=== PATIENT | male | born 1940 | race Caucasian/White ===

== ENCOUNTER 2017-12-16 16:15 | Outpatient (RCR) | payer MEDICARE, OTHER, SELFPAY ==
[2017-11-19 16:56] VITALS: BMI 27.8
[2017-12-08 12:24] LABS: Anion Gap 10 (5-15); BUN 26 mg/dL (7-18); Calcium,Total 8.1 mg/dL (8.5-10.1); Chloride 106 mmol/L (98-107); Creatinine, Serum 0.79 mg/dL (0.70-1.30); EST Glomerular Filtration Rate 101 mL/min (>60); Est Glom Filt Rate - Afr Amer 123 mL/min (>60); Glucose 77 mg/dL (70-110); Magnesium 1.6 mg/dL (1.6-2.6); Potassium 3.8 mmol/L (3.5-5.1); Sodium Level 142 mmol/L (136-145)
[2017-12-08 12:43] LABS: Hematocrit 35.7 % (40-54); Hemoglobin 11.7 g/dl (13.0-16.5); Mean Corp Hgb Conc 32.8 g/gl (32-36); Mean Corpuscular Hgb 27.9 pg (27.0-32.0); Mean Platelet Vol. 11.6 fl (6.2-12.0); Platelet Count 129 K/mm3 (150-450); RBC Distribution Width CV 14.5 % (11.6-14.6); RBC Distribution Width SD 43.7 fl (35.1-43.9); White Blood Count 12.6 K/mm3 (4.4-11.0)
[2017-12-08 13:08] LABS: Differential Indicated SCAN CRITERIA MET; POSITIVE COUNT YES; POSITIVE DIFFERENTIAL YES; POSITIVE MORPHOLOGY YES
[2017-12-08 14:59] LABS: Lymphocyte 1 % (19-41); Monocyte 2 % (0-10); Neutrophil-Band 2 % (0-5); Neutrophil-Segmented 95 % (47-70); Total Cells Counted 100 (MANUAL DIFF)
[2017-12-08 15:00] LABS: Burr Cells 1+; Platelet Estimate SLT DEC (ADEQ); Red Cell Morphology N CHROM NORMAL (NORM C&C)
[2017-12-08 15:02] LABS: Scan Smear per Review Criteria MANUAL DIFF
[2017-12-09 03:34] LABS: Absolute Neutrophil Count 12.2 X10^3/uL (2.0-7.7); Neutrophil # 12.24 X10^3/uL (2.7-7.7)
[2017-12-09 03:35] LABS: Absolute Lymphocyte Count 0.13 X10^3/ul (0.83-4.51); Lymphocyte # 0.13 X10^3/ul (4.0)
[2017-12-09 13:04] LABS: Pathologist Review Reviewed
[2017-12-15 14:46] LABS: Absolute Lymphocyte Count 0.73 X10^3/ul (0.83-4.51); Absolute Neutrophil Count 12.2 X10^3/uL (2.0-7.7); Basophil# 0.04 X10^3/uL; Basophil% 0.3 % (0-1); Differential Indicated SCAN CRITERIA MET; Eosinophil# 0.01 X10^3/uL; Eosinophils% 0.1 % (0-5); Hematocrit 31.9 % (40-54); Hemoglobin 10.4 g/dl (13.0-16.5); Lymphocyte # 0.73 X10^3/ul (4.0); Lymphocyte % 5.2 % (19-41); Mean Corp Hgb Conc 32.6 g/gl (32-36); Mean Corpuscular Hgb 27.4 pg (27.0-32.0); Mean Corpuscular Volume 83.9 fL (80-94); Mean Platelet Vol. 10.7 fl (6.2-12.0); Monocyte# 0.81 X10^3/uL; Monocyte% 5.7 % (0-10); Neutrophil # 12.24 X10^3/uL (2.7-7.7); Neutrophil % 86.5 % (47-70); POSITIVE COUNT YES; POSITIVE DIFFERENTIAL NO; POSITIVE MORPHOLOGY YES; Platelet Count 161 K/mm3 (150-450); RBC Distribution Width SD 45.7 fl (35.1-43.9); White Blood Count 14.1 K/mm3 (4.4-11.0)
[2017-12-15 14:47] LABS: Anion Gap 7 (5-15); BUN 14 mg/dL (7-18); BUN/Creat Ratio 16.4 RATIO (10-20); Calcium,Total 7.4 mg/dL (8.5-10.1); Chloride 107 mmol/L (98-107); Creatinine, Serum 0.86 mg/dL (0.70-1.30); EST Glomerular Filtration Rate 92 mL/min (>60); Est Glom Filt Rate - Afr Amer 112 mL/min (>60); Glucose 145 mg/dL (70-110); Magnesium 1.1 mg/dL (1.6-2.6); Potassium 2.7 mmol/L (3.5-5.1); Sodium Level 140 mmol/L (136-145)
[2017-12-16 16:43] LABS: Pathologist Review Reviewed
[2017-12-16 17:25] LABS: Anion Gap 8 (5-15); BUN 15 mg/dL (7-18); BUN/Creat Ratio 19.9 RATIO (10-20); Calcium,Total 7.6 mg/dL (8.5-10.1); Chloride 110 mmol/L (98-107); Creatinine, Serum 0.75 mg/dL (0.70-1.30); EST Glomerular Filtration Rate 107 mL/min (>60); Est Glom Filt Rate - Afr Amer 130 mL/min (>60); Glucose 101 mg/dL (70-110); Magnesium 1.3 mg/dL (1.6-2.6); Potassium 3.2 mmol/L (3.5-5.1); Sodium Level 143 mmol/L (136-145)
== END 2017-12-17 23:59 ==
LOC: HHLAB 16:15
PROVIDERS: Visit Provider Internal Medicine Hematology
DX: C83.59 Lymphoblastic (diffuse) lymphoma, extranodal and solid organ sites (principal); I25.10 Atherosclerotic heart disease of native coronary artery without angina pectoris
CPT/HCPCS: 80048; 83735; 85025

== ENCOUNTER 2017-12-27 09:54 | Emergency (ER) | payer MEDICARE, OTHER, SELFPAY ==
[2017-11-19 16:56] VITALS: BMI 27.8
[2017-12-27 10:02] VITALS: BP 103/65; PULSE 76; RESP 16; TEMP 36.4; O2SAT 99; BMI 21.5
== END 2017-12-27 10:23 | disposition home or self-care (01) ==
PROVIDERS: Emergency Provider Emergency Medicine; Family Provider Family Medicine; PCP Family Medicine
DX: C83.50 Lymphoblastic (diffuse) lymphoma, unspecified site (principal)
CPT/HCPCS: 96372; J2505

== ENCOUNTER 2017-12-29 16:08 | Outpatient (RCR) | payer MEDICARE, OTHER, SELFPAY ==
[2017-11-19 16:56] VITALS: BMI 27.8
[2017-12-05 10:09] VITALS: BP 112/69
[2017-12-22 18:45] LABS: Absolute Neutrophil Count 11.3 X10^3/uL (2.0-7.7); Basophil# 0.04 X10^3/uL; Basophil% 0.3 % (0-1); Eosinophil# 0.03 X10^3/uL; Eosinophils% 0.2 % (0-5); Hematocrit 31.9 % (40-54); Hemoglobin 10.2 g/dl (13.0-16.5); Lymphocyte % 7.3 % (19-41); Mean Corpuscular Hgb 27.6 pg (27.0-32.0); Mean Corpuscular Volume 86.4 fL (80-94); Mean Platelet Vol. 10.3 fl (6.2-12.0); Monocyte# 1.13 X10^3/uL; Monocyte% 8.3 % (0-10); Neutrophil # 11.27 X10^3/uL (2.7-7.7); Neutrophil % 82.8 % (47-70); POSITIVE COUNT NO; POSITIVE DIFFERENTIAL NO; POSITIVE MORPHOLOGY NO; Platelet Count 329 K/mm3 (150-450); RBC Distribution Width CV 16.6 % (11.6-14.6); RBC Distribution Width SD 48.7 fl (35.1-43.9); Red Blood Count 3.69 M/mm3 (4.6-6.2); White Blood Count 13.6 K/mm3 (4.4-11.0)
[2017-12-22 19:00] LABS: Anion Gap 7 (5-15); BUN 10 mg/dL (7-18); BUN/Creat Ratio 19.5 RATIO (10-20); Calcium,Total 7.8 mg/dL (8.5-10.1); Chloride 105 mmol/L (98-107); Creatinine, Serum 0.51 mg/dL (0.70-1.30); EST Glomerular Filtration Rate 166 mL/min (>60); Est Glom Filt Rate - Afr Amer 201 mL/min (>60); Glucose 71 mg/dL (74-106); Magnesium 1.6 mg/dL (1.6-2.6); Potassium 3.7 mmol/L (3.5-5.1); Sodium Level 141 mmol/L (136-145)
[2017-12-29 16:50] LABS: Hematocrit 28.1 % (40-54); Hemoglobin 9.2 g/dl (13.0-16.5); Mean Corp Hgb Conc 32.7 g/gl (32-36); Mean Corpuscular Hgb 28.2 pg (27.0-32.0); Mean Corpuscular Volume 86.2 fL (80-94); Mean Platelet Vol. 10.7 fl (6.2-12.0); Platelet Count 212 K/mm3 (150-450); RBC Distribution Width CV 17.9 % (11.6-14.6); RBC Distribution Width SD 52.9 fl (35.1-43.9); Red Blood Count 3.26 M/mm3 (4.6-6.2)
[2017-12-29 17:02] LABS: Anion Gap 9 (5-15); BUN 22 mg/dL (7-18); BUN/Creat Ratio 42.4 RATIO (10-20); Calcium,Total 8.2 mg/dL (8.5-10.1); Chloride 109 mmol/L (98-107); Creatinine, Serum 0.52 mg/dL (0.70-1.30); EST Glomerular Filtration Rate 164 mL/min (>60); Est Glom Filt Rate - Afr Amer 199 mL/min (>60); Glucose 100 mg/dL (74-106); Magnesium 1.8 mg/dL (1.6-2.6); Potassium 4.1 mmol/L (3.5-5.1); Sodium Level 143 mmol/L (136-145)
[2017-12-29 17:41] LABS: Differential Indicated MANUAL DIFF; POSITIVE COUNT YES; POSITIVE DIFFERENTIAL YES; POSITIVE MORPHOLOGY YES
[2017-12-29 21:51] LABS: Absolute Lymphocyte Count 0.53 X10^3/ul (0.83-4.51); Neutrophil-Band 1 % (0-5); Neutrophil-Segmented 97 % (47-70)
[2017-12-29 21:52] LABS: Lymphocyte 1 % (19-41); Monocyte 1 % (0-10)
[2017-12-29 21:53] LABS: Anisocytosis RARE; Platelet Estimate ADEQUATE (ADEQ)
[2017-12-29 21:58] LABS: Total Cells Counted 100 (MANUAL DIFF)
[2017-12-30 15:52] LABS: Pathologist Review Reviewed
[2017-12-31 15:15] LABS: Differential Comment SEE COMMENTS
== END 2018-01-06 23:59 ==
LOC: HHLAB 16:08
PROVIDERS: Family Provider Family Medicine; PCP Family Medicine; Visit Provider Internal Medicine Hematology
DX: C83.59 Lymphoblastic (diffuse) lymphoma, extranodal and solid organ sites (principal); I25.10 Atherosclerotic heart disease of native coronary artery without angina pectoris
CPT/HCPCS: 80048; 83735; 85025

== ENCOUNTER → 2018-01-05 16:46 | Outpatient (CLI) | payer MEDICARE, OTHER, SELFPAY ==
[2017-11-19 16:56] VITALS: BMI 27.8
[2018-01-05 17:37] LABS: Hematocrit 33.1 % (40-54); Hemoglobin 10.7 g/dl (13.0-16.5); Mean Corp Hgb Conc 32.3 g/gl (32-36); Mean Corpuscular Hgb 27.4 pg (27.0-32.0); Mean Corpuscular Volume 84.7 fL (80-94); Mean Platelet Vol. 11.4 fl (6.2-12.0); Platelet Count 173 K/mm3 (150-450); RBC Distribution Width CV 19.5 % (11.6-14.6); RBC Distribution Width SD 56.5 fl (35.1-43.9); Red Blood Count 3.91 M/mm3 (4.6-6.2); White Blood Count 21.4 K/mm3 (4.4-11.0)
[2018-01-05 17:39] LABS: Differential Indicated MANUAL DIFF; POSITIVE COUNT NO; POSITIVE DIFFERENTIAL NO; POSITIVE MORPHOLOGY YES
[2018-01-05 17:56] LABS: Anion Gap 9 (5-15); BUN 19 mg/dL (7-18); BUN/Creat Ratio 26.2 RATIO (10-20); Calcium,Total 9.1 mg/dL (8.5-10.1); Chloride 98 mmol/L (98-107); Creatinine, Serum 0.73 mg/dL (0.70-1.30); EST Glomerular Filtration Rate 111 mL/min (>60); Est Glom Filt Rate - Afr Amer 135 mL/min (>60); Glucose 152 mg/dL (74-106); Magnesium 1.6 mg/dL (1.6-2.6); Potassium 3.5 mmol/L (3.5-5.1); Sodium Level 135 mmol/L (136-145)
[2018-01-05 18:35] LABS: Lymphocyte 1 % (19-41); Monocyte 6 % (0-10); Neutrophil-Band 38 % (0-5); Neutrophil-Segmented 55 % (47-70); Total Cells Counted 100 (MANUAL DIFF)
[2018-01-05 18:37] LABS: Absolute Lymphocyte Count 0.21 X10^3/ul (0.83-4.51); Absolute Neutrophil Count 19.9 X10^3/uL (2.0-7.7); Lymphocyte # 0.21 X10^3/ul (4.0)
[2018-01-05 18:43] LABS: Acanthocytes 2+; Anisocytosis 2+; Platelet Estimate ADEQUATE (ADEQ)
[2018-01-05 18:44] LABS: Crenated RBC 1+; Schistocytes RARE
[2018-01-06 14:44] LABS: Pathologist Review Reviewed
== END ==
PROVIDERS: Family Provider Family Medicine; PCP Family Medicine; Visit Provider Internal Medicine Hematology
DX: C83.50 Lymphoblastic (diffuse) lymphoma, unspecified site (principal)
CPT/HCPCS: 80048; 83735; 85025

== ENCOUNTER → 2018-01-06 10:26 | Outpatient (CLI) | payer MEDICARE, OTHER, SELFPAY ==
[2017-11-19 16:56] VITALS: BMI 27.8
--- NOTE | 2018-01-06 10:33 | RAD_ITS ---
STUDY: X-RAY CHEST REASON FOR EXAM: Male, 77 years old. History of pneumonia. TECHNIQUE: PA and lateral views of the chest. COMPARISON: Comparison is made with prior study dated October 28, 2017. FINDINGS: A right-sided PICC line catheter is seen with the tip in the proximal portion of the superior vena cava at the junction with the right atrium. There is evidence of a focal infiltration in the left lower lobe. Follow-up is recommended. There is blunting of the left costophrenic angle. Normal size heart. Normal mediastinum and benson. Normal visualized pulmonary arteries. There is atherosclerotic calcification of the aortic arch with tortuosity. There are diffuse degenerative changes of the visualized thoracic spine. Normal visualized ribs, clavicles, and shoulders. There is no demonstrated abnormality of the visualized soft tissue structures of the upper abdomen. RAD/Chest PA and Lateral IMPRESSION: Left lower lobe infiltrate. Follow-up is recommended. Blunting of the left costophrenic angle. Electronically Signed: Ronny Clark MD at 20:06 EST Tel [phone], Service support ,
== END ==
PROVIDERS: Family Provider Family Medicine; PCP Family Medicine; Visit Provider Family Medicine
DX: J15.9 Unspecified bacterial pneumonia (principal)
CPT/HCPCS: 71046

== ENCOUNTER 2018-01-06 16:21 | Emergency (ER) | payer MEDICARE, OTHER, SELFPAY ==
[2017-11-19 16:56] VITALS: BMI 27.8
[2018-01-06] VITALS (13 sets, daily range): BP systolic 61–100; BP diastolic 42–61; PULSE 114–190; RESP 12–48; TEMP 35.7–38.1; O2SAT 85–97; BMI 22.2
--- NOTE | 2018-01-06 16:48 | EKG12_ITS ---
Test Reason : REPEAT Blood Pressure : / mmHG Vent. Rate : 160 BPM Atrial Rate : 160 BPM P-R Int : 102 ms QRS Dur : 122 ms QT Int : 284 ms P-R-T Axes : 088 -45 057 degrees QTc Int : 463 ms Aflutter with 2:1 conduction Left axis deviation Right bundle branch block Septal infarct , age undetermined Abnormal ECG Confirmed by PERNELL FIELDS ([id number]), news editor KAYLA CLAYTON ([id number]) on 01/08/2018 2:53:17 PM Referred By: LUIS Confirmed By:PERNELL FIELDS
[2018-01-06] MEDS: 0.9% Normal Saline 1,000 ML IV.SOLN. 2000 ML IV (16:53)
--- NOTE | 2018-01-06 17:04 | RAD_ITS ---
XR Chest 1 View INDICATION: DYSPNEA/SOB AND COUGH. COMPARISON: Earlier the same day TECHNIQUE: Portable chest x-ray FINDINGS: Right-sided PICC line is seen in place, unchanged There is incomplete inspiration with accentuation of the cardiac size and central vascularity. There is stable hazy opacity at the left lung base. Some atelectatic changes are noted at the right lung base. RAD/Chest 1 View (Portable) IMPRESSION: Incomplete inspiration with bibasilar atelectasis. Hazy opacity at left lung base, cannot exclude developing pneumonic infiltrate. at 1743 Reported and signed by: Saira Treadwell MD Electronically Signed: Saira Treadwell MD at 16:42 EST Tel , Service support ,
[2018-01-06 17:05] LABS: Base Excess 0 mmol/L (-2 to +2); Bicarbonate 23.7 mmol/L (22-26); Blood Gas Specimen Type ART; EPAP 8; FI02 100; IPAP 16; PO2 83 mmHG (75-100); RR 12; SITE R Brachial; SO2 97 % (95-99); Time Given 1650; Total Carbon Dioxide 25 mmol/L; pCO2 31.1 mmHg (35-45); pH 7.49 (7.35-7.45)
--- NOTE | 2018-01-06 17:09 | EKG12_ITS ---
Test Reason : SOB Blood Pressure : / mmHG Vent. Rate : 129 BPM Atrial Rate : 129 BPM P-R Int : 192 ms QRS Dur : 126 ms QT Int : 334 ms P-R-T Axes : 057 -60 079 degrees QTc Int : 489 ms Sinus tachycardia with Premature supraventricular complexes Right bundle branch block Left anterior fascicular block Bifascicular block Abnormal ECG Confirmed by PERNELL FIELDS ([id number]), photo editor KAYLA CLAYTON ([id number]) on 01/08/2018 3:00:32 PM Referred By: LUIS Confirmed By:PERNELL FIELDS
--- NOTE | 2018-01-06 17:17 | EKG12_ITS ---
Test Reason : SVT REPEAT Blood Pressure : / mmHG Vent. Rate : 190 BPM Atrial Rate : 197 BPM P-R Int : 000 ms QRS Dur : 120 ms QT Int : 294 ms P-R-T Axes : 000 -67 019 degrees QTc Int : 522 ms Aflutter with 2:1 conduction Right bundle branch block Left anterior fascicular block Bifascicular block Anteroseptal infarct , age undetermined Abnormal ECG Confirmed by PERNELL FIELDS ([id number]), development editor KAYLA CLAYTON ([id number]) on 01/08/2018 2:53:55 PM Also confirmed by PERNELL FIELDS ([id number]), development editor KAYLA CLAYTON ([id number]) on 01/08/2018 3:00:52 PM Referred By: LUIS Confirmed By:PERNELL FIELDS
[2018-01-06 17:34] LABS: Bacteria 0 SEEN /hpf (None Seen); Mucous, Urine 0 SEEN /hpf (<or=2+)
[2018-01-06] MEDS: fentaNYL 100 MCG/2 ML Ampul 25 MCG IV ×2 (17:36→18:26)
[2018-01-06 17:43] LABS: Lactic Acid 9.2 mmol/L (0.4-2.0)
--- NOTE | 2018-01-06 17:49 | NURSING ---
HOSPICE FOR DR SMITH
[2018-01-06 17:50] LABS: Color, Urine Yellow (Yellow); Glucose, Dipstick Normal (Normal); Ketone-Dipstick 5 mg/dl (Negative); Leukocyte Esterase-Dipstick 25 /ul (Negative); Nitrite-Dipstick Negative (Negative); Occult Blood-Urine 10 /ul (Negative); Protein-Dipstick 100 mg/dl (Negative); Specific Gravity, Urine 1.025 (1.002-1.030); Urine Clarity Sl. Cloudy (Clear); Urine Urobilinogen 1 mg/dl (Normal)
[2018-01-06 18:03] LABS: ALB/GLOB Ratio 0.9 RATIO (0.9-2.4); AST(SGOT) 24 U/L (15-37); Alanine Aminotransfer ALT/SGPT 28 U/L (16-61); Albumin, Serum 3.3 g/dL (3.2-5.0); Alkaline Phosphatase 145 U/L (45-117); Anion Gap 19 (5-15); BUN 41 mg/dL (7-18); BUN/Creat Ratio 18.9 RATIO (10-20); Calcium,Total 9.2 mg/dL (8.5-10.1); Chloride 90 mmol/L (98-107); Creatinine, Serum 2.17 mg/dL (0.70-1.30); EST Glomerular Filtration Rate 32 mL/min (>60); Est Glom Filt Rate - Afr Amer 38 mL/min (>60); Estimated Creatinine Clearance 28.41 ml/min; Globulin 3.5 g/dL (2.2-4.2); Glucose 113 mg/dL (74-106); Potassium 3.5 mmol/L (3.5-5.1); Protein, Total 6.8 g/dL (6.4-8.2); Sodium Level 135 mmol/L (136-145)
[2018-01-06 18:16] LABS: Urine Bilirubin Dipstick 1 mg/dL (Negative)
[2018-01-06 18:23] LABS: Lymphocyte 1 % (19-41); Monocyte 3 % (0-10); Neutrophil-Band 11 % (0-5); Neutrophil-Segmented 85 % (47-70); Total Cells Counted 100 (MANUAL DIFF)
[2018-01-06] MEDS: Glycopyrrolate 0.2 MG/ML Vial 0.1 MG IV (18:25)
[2018-01-06] MEDS: Ondansetron 4 MG/2 ML Vial IM (18:25)
[2018-01-06 18:28] LABS: Hematocrit 36.1 % (40-54); Hemoglobin 11.9 g/dl (13.0-16.5); Mean Corpuscular Hgb 27.6 pg (27.0-32.0); Mean Corpuscular Volume 83.8 fL (80-94); Mean Platelet Vol. 11.6 fl (6.2-12.0); Platelet Count 218 K/mm3 (150-450); RBC Distribution Width CV 19.7 % (11.6-14.6); Red Blood Count 4.31 M/mm3 (4.6-6.2); White Blood Count 27.3 K/mm3 (4.4-11.0)
[2018-01-06 18:29] LABS: Amorphous Sediment 1+ URATE; Red Blood Cells-Urine 0-5 SEEN /hpf (0-5); Squamous Epithelial Cells - UA 0-5 SEEN /hpf (0-5); White Blood Cells 0-5 SEEN /hpf (0-5)
[2018-01-06 18:31] LABS: Differential Indicated MANUAL DIFF; POSITIVE COUNT NO; POSITIVE DIFFERENTIAL NO; POSITIVE MORPHOLOGY YES
[2018-01-06 18:32] LABS: Absolute Lymphocyte Count 0.27 X10^3/ul (0.83-4.51); Absolute Neutrophil Count 26.2 X10^3/uL (2.0-7.7)
[2018-01-06 18:33] LABS: Acanthocytes 2+; Crenated RBC 2+; Ovalocyte RARE; Platelet Morphology LARGE; Poikilocytosis 3+; Polychromasia RARE
[2018-01-06 18:36] LABS: Absolute Nucleated RBC Count 0.09 10^3/uL (0-5); NRBC Flagged by Analyzer 0.3 % (0-5)
--- NOTE | 2018-01-06 19:23 | ED.RN ---
THIS RN IN WITH PATIENT AND FAMILY AT APPROX 640. ASKED FAMILY WHAT THE THOUGHTS WERE ON HOSPICE CARE. FAMILY STATES THEY JUST DID NOT KNOW WHAT THE NEXT STEP WAS THEY TOLD THE HOSPICE WORKER THAT THEY DID WANT TO GO THE HOSPICE FACILITY. THIS RN TALKED TO CHARGE NURSE WHO STATES THE WORKER TOLD HIM THE FAMILY WAS NOT SURE IF HOSPICE WAS WHAT THEY WANTED. THIS RN TO DR DA SILVA WHO STATED FAMILY HAS WANTED HOSPICE FROM SHORTLY AFTER ARRIVAL. HOSPICE PAGED AGAIN
[2018-01-06] MEDS: LORazepam 2 MG/ML Syringe 1 MG IV (20:31)
--- NOTE | 2018-01-06 20:54 | ED.RN ---
MOIRA FROM HOSPICE CALLED AND REPORTED THAT AROUND [address] [facility] SHOULD HAVE THE BI-PAP DELIVERED TO HOSPICE FOR PT. AT THAT TIME HOSPICE WILL SEND TRANSPORT FOR PT PHOTOGRAPHER MODEL AT [facility].
[2018-01-06 21:10] LABS: Reflex Lactate? Y
--- NOTE | 2018-01-06 21:19 | ED.RN ---
ABSENCE OF VITAL SIGNS AT 2112. PT'S HEART RATE WAS PREVIOUSLY IN THE 150'S AND THEN DROPPED TO 60, THIS NURSE ENTERED PT'S ROOM AND PT'S STATED I THINK HE'S PASSED DR. SMITH WAS CALLED TO THE ROOM AND REPORTED PT AT 2112 TO THIS NURSE. PT WAS DNR AND TO BE TRANSPORTED TO HOSPICE.
--- NOTE | 2018-01-07 00:58 | ED.VISSUMM ---
- ER Visit Summary Date of Service: 01/07/18 Chief Complaint: Weakness and shortness of breath History of Present Illness: The patient is a 77 M presenting for evaluation secondary to weakness and shortness of breath. Patient has an underlying history of T-cell lymphoma and has been on chemo to rounds. Patient had been feeling ill over the course of the last week, cough and fever, but today became acutely worse. He is now in respiratory distress and presenting to the emergency department. Patient is a DNR Comfort Care arrest no intubation. Physical Examination: Cachectic male clearly in respiratory distress. Vital signs notable for hypotension 60/40, heart rate of 160, respirations 50, pulse ox of 80% on nasal cannula. Head normocephalic. Pale conjunctiva. Dry mucous membranes. Neck supple. Heart was irregular and tachycardic. Lung sounds very wet showing evidence of rales and rhonchi with respiratory distress. Abdomen was distended but nontender. Extremities were nontender. Skin was pale. Patient was alert and oriented, and exhibited no lateralizing neurological deficits. Test Results: EKG shows A. fib with RVR and a rate of 160 and a left bundle branch block. CBC shows leukocytosis of 27.3, chemistry shows anion gap of 19 BUN of 41 creatinine of 2.17, lactic acid 9.2, chest x-ray shows bilateral infiltrates Emergency Department Course and Treatment: Patient presented to the emergency department in respiratory distress. I did confirm with the patient as he was still able to talk about his CODE STATUS and intubation status and he stated that he was DNR Comfort Care arrest without intubation. He was immediately placed on BiPAP and did have some improvement in his comfort of respirations. Patient was started with aggressive fluid hydration, but after a period of time on BiPAP and aggressive fluid hydration the patient was still having refractory hypotension, spikes of his heart rate up into the 200s, and still at a respiratory rate in the 30s or 40s. I had a conversation with his family about CODE STATUS and the likelihood that he would from this current illness, and they did consent to hospice care. I contacted hospice, patient was started on fentanyl for respiratory distress, Robinul for secretions, and Ativan for any sort of anxiety. Hospice did evaluate the patient, and accepted the patient but the patient further deteriorated in the emergency department and ultimately time of was called at 2112. Disposition: Impression: 1. Septic shock 2. T-cell lymphoma Critical care time 45 minutes This note was generated with [employer] dictation software. It may contain incorrect words, spelling, and punctuation that were not noted in review of the chart prior to signing ED Disposition - Plan for ED Patient: Disposition: Chief Complaint: Weakness Referrals: Elena Park MD [Primary Care Provider] -
[2018-01-07 09:18] LABS: Pathologist Review Reviewed
== END 2018-01-06 22:39 ==
PROVIDERS: Emergency Provider Emergency Medicine; Family Provider Family Medicine; PCP Family Medicine
DX: A41.9 Sepsis, unspecified organism (principal); R65.21 Severe sepsis with septic shock; C91.50 Adult T-cell lymphoma/leukemia (HTLV-1-associated) not having achieved remission; J15.9 Unspecified bacterial pneumonia; Z66 Do not resuscitate; Z79.82 Long term (current) use of aspirin; Z79.899 Other long term (current) drug therapy
CPT/HCPCS: 36600; 71045; 71046; 80053; 81001; 82803; 83605; 85025; 87077; 87086; 87088; 87186; 93005; 94002; 96361; 96372; 96374; 96375; 96376; 99285; J7030; A4216; J2405